=== PATIENT | male | born 1950 | race African-American/Black ===

== ENCOUNTER 2016-11-12 20:25 | Observation (INO) | payer OTHER, MEDICARE ==
[2016-11-12 21:08] LABS: Hematocrit 36.4 % (42.0-52.0); Hemoglobin 12.8 gm/dL (13.5-18.0); Mean Cell Volume 82.4 fl (78-100); Mean Corpuscular Hgb Conc 35.2 g/dl (32-36); Mean Platelet Volume 9.8 fl (6.0-9.5); Neutrophil # 5.4 K/mm3 (1.3-6.0); Neutrophil % 91.6 % (42-75.0); Platelet Count 146 K/mm3 (150-450); Red Blood Count 4.42 M/mm3 (4.7-6.0); Red Cell Distribution Width 12.7 % (11.5-14.0); White Blood Count 5.9 K/mm3 (4.0-10.5)
--- NOTE | 2016-11-12 21:23 | ERNOTE ---
Medical Problem HPI - Narrative Date of Service: 11/12/16 - General Chief Complaint: General Assessment Time Seen by Provider: 11/12/16 21:11 Source: patient, family Exam Limitations: no limitations - Immun/Allergies/Home Medications Immunizations: IMMUNIZATION HX Immunizations Up to Date Yes History of Influenza Vaccine Yes Hx Pneumococcal Vaccination Yes Allergies/Adverse Reactions: Allergies No Known Allergies Allergy (Verified 11/12/16 20:34) Home Medications: HOME MEDICATIONS Diltiazem HCl [Cardizem Cd] 1 tab PO DAILY 04/18/14 [Last Taken 01/19/15 07:00] Dorzolamide HCl/Timolol Maleat [Cosopt Eye Drops] 1 drop OP BID 04/18/14 [Last Taken 01/19/15 21:00] Enalapril Maleate [Vasotec] 20 mg PO BID 04/18/14 [Last Taken 01/19/15 18:00] Ferrous Sulfate 324 mg PO TID 04/18/14 [Last Taken 01/19/15 18:00] Finasteride [Proscar] 5 mg PO DAILY 04/18/14 [Last Taken 01/19/15 07:00] Flunisolide 25 ml NS BID 04/18/14 [Last Taken 01/19/15 21:00] Omeprazole [Prilosec] 20 mg PO DAILY 04/18/14 [Last Taken 01/19/15 07:00] Sildenafil Citrate [Viagra] 100 mg PO DAILY PRN 04/18/14 [Last Taken Unknown] Terazosin HCl 10 mg PO HS 04/18/14 [Last Taken 01/19/15 21:00] amLODIPine BESYLATE [Norvasc] 10 mg PO DAILY 04/18/14 [Last Taken 01/19/15 07:00 ] Ascorbic Acid [Vitamin C] 1 tab PO DAILY 01/20/15 [Last Taken 01/19/15 07:00] Aspirin [Aspirin Enteric Coated] 81 mg PO DAILY 01/20/15 [Last Taken 01/19/15 07 :00] Multivitamin with Minerals [One Daily 50 Plus] 1 each PO DAILY 01/20/15 [Last Taken 01/19/15 07:00] Calder-3 Fatty Acids [Calder-3] 1,000 mg PO DAILY 01/20/15 [Last Taken 01/19/15 07 :00] Vitamin E 400 unit PO DAILY 01/20/15 [Last Taken 01/19/15] prednisoLONE ACETATE [Pred Forte 1%] 1 drop OP QID 01/20/15 [Last Taken 21:00] Acetaminophen [Tylenol] 650 mg PO QID PRN #0 tablet 01/23/15 [Last Taken Unknown ] Benzonatate [Tessalon] 200 mg PO Q6H capsule 01/23/15 [Last Taken Unknown] Bisacodyl [Dulcolax] 10 mg PO BID tablet. 01/23/15 [Last Taken Unknown] Cefepime HCl [Maxipime] 1 gm IV Q12H vial 01/23/15 [Last Taken Unknown] Clobetasol Propionate [Temovate 0.05% Ointment] 1 appl TP BID tube 01/23/15 [ Last Taken Unknown] Dextrose 5 % in Water [Dextrose 5%/Water] 100 ml IV Q12H bag 01/23/15 [Last Taken Unknown] Enoxaparin Sodium [Lovenox] 40 mg SC Q24H disp.syrin 01/23/15 [Last Taken Unknown] Insulin Aspart [Novolog] 10 units SC ACINS vial 01/23/15 [Last Taken Unknown] Insulin Glargine,Hum.rec.anlog [Lantus] 40 units SC HS vial 01/23/15 [Last Taken Unknown] Magnesium Hydroxide [Milk Of Magnesia] 45 ml PO BID udc 01/23/15 [Last Taken Unknown] Normal Saline [Sodium Chloride 0.9%] 1,000 ml IV .Q8H PRN #0 bag 01/23/15 [Last Taken Unknown] Sennosides/Docusate Sodium [Senokot-S] 2 tab PO BID tablet 01/23/15 [Last Taken Unknown] Spironolactone [Aldactone] 50 mg PO DAILY tablet 01/23/15 [Last Taken Unknown] Tetracaine/Benzocaine/Butamben [Cetacaine] 1 spray TP PRN PRN #0 btl 01/23/15 [ Last Taken Unknown] metFORMIN HCL [Glucophage] 1,000 mg PO BIDWM tablet 01/23/15 [Last Taken Unknown] - History of Present History Narrative: Pt. comes in with c/o malaise, fatigue and chills that started 2 hours ago. Pt. denies any recent illness, SOB, CP, NVD, abd pain, dysuria, fevers, weakness , or other symptoms. Pt. denies any alleviating factors, aggravating factors, or prehospital treatment. Review of Systems - Review of Systems Constitutional: Present: no symptoms reported. Absent: recent illness, fever, chills, weakness, fatigue, malaise EYE: Present: no symptoms reported ENT: Present: no symptoms reported Respiratory: Present: no symptoms reported. Absent: shortness of breath, cough , wheezing Cardiology: Present: no symptoms reported. Absent: chest pain, palpitations, edema Gastrointestinal/Abdominal: Present: no symptoms reported. Absent: nausea, vomiting, diarrhea, abdominal pain Genitourinary: Present: no symptoms reported. Absent: pain, decreased urinary output Musculoskeletal: Present: no symptoms reported. Absent: back pain, joint pain Skin: Present: no symptoms reported. Absent: rash, change in hair/nails Neurological: Present: no symptoms reported. Absent: headache, dizziness/light- headedness, numbness All Other Systems: All systems neg except as marked - Patient's Past Medical History Patient History - Medical: Cataracts, Diabetes Type 2, Diabetes Type 2 Insulin Dependent, UTI'S Patient History - Cardiac/Respiratory: No pertinent hx, Hypertension, Hyperlipidemia Patient History - Cancer: No Hx of Cancer Patient History - Surgical Procedures: Cataracts Patient History - Other: None - Family History Mother Family History - Medical: , Diabetes Type 2 Insulin Dependent Family History - Cardiac/Respiratory: CVA/Stroke Father Family History - Medical: , Diabetes Type 2 Insulin Dependent - Social History Living Situations: home Psych History: Psychiatric Hx Smoking Status: Never smoker Patient requests Smoking Cessation Consult: No Initiate information on Smoking Cessation: No Alcohol Use: none Drug Use: none - Immunizations Immunizations Up to Date: Yes Hx Pneumococcal Vaccination: Yes History of Influenza Vaccine: Yes Physical Exam - Physical Exam General Appearance: Present: wd/wn, alert, no apparent distress Eye Exam: Normal inspection: bilateral, PERRL: bilateral, EOMI: bilateral Ears, Nose, Throat: Present: normal ENT inspection, normal pharynx Neck: Present: normal inspection, nontender. Absent: lymphadenopathy (R), lymphadenopathy (L) Respiratory: Present: no respiratory distress, normal breath sounds, no accessory muscle use, chest nontender, lungs clear Cardiovascular/Chest: Present: regular rate, rhythm, no murmur, normal peripheral pulses Gastrointestinal/Abdominal: Present: normal bowel sounds, nontender, nondistended, soft, no organomegaly Back Exam: Present: normal inspection, normal range of motion, no CVA tenderness , no vertebral tenderness Extremity Exam: Present: normal inspection, non-tender, normal range of motion, no edema Neurological Exam: Present: alert, oriented, normal mood/affect, no motor/ sensory deficits Skin Exam: Present: normal color, warm/dry. Absent: pallor, skin rash ED Progress - Date and Time Seen: Date and Time: 11/12/16 22:48 Discussed with Debbi and she accepts pt. for observation. - Results and Orders Patient's Lab Results:: I have reviewed the patient's lab results. - Vital Signs Patient's Vital Signs:: I have reviewed the patient's vital signs. Vital Signs: Vital Signs 11/12/16 20:30 Temperature 38.5 C H Pulse Rate 133 H Respiratory 20 Rate Blood Pressure 125/85 O2 Sat by Pulse 93 Oximetry - EKG EKG: other - Sinus tach with left atrial enlargement - X-Ray X-Ray #1 X-Ray: chest Interpretation: Reviewed by me X-ray Comments: peribronchial thickening - Progress/Reassessment Chief Complaint: General Assessment Departure - Departure Clinical Impression: Acute worsening of stage 3 chronic kidney disease Sepsis Qualifiers: Sepsis type: sepsis due to unspecified organism Qualified Code(s): A41.9 - Sepsis, unspecified organism UTI (urinary tract infection) Qualifiers: Urinary tract infection type: site unspecified Hematuria presence: with hematuria Qualified Code(s): N39.0 - Urinary tract infection, site not specified ; R31.9 - Hematuria, unspecified Disposition: [facility] Condition: Serious
--- OUTSIDE RECORDS SUMMARY | 2016-11-12 21:29 | XMS REPORT | Continuity of Care Document ---
:1950 Author Organization [facility] ([facility]) Address [address] [place] [address] Phone [phone] Care Team Providers Name Role Phone Reid [facility] Primary Care Provider [phone] Source Comments This disclosure is being made pursuant to the Care Everywhere program, applicable federal and state laws, and may not contain all informaitonavailable regarding this patient.[facility] ([facility]) Active Allergies and Adverse Reactions No Known Allergies Current Medications Prescription Sig. Disp. Refills Start Date End Date Status aspirin 81 mg EC tablet Take 81 mg by mouth Active daily chorionic gonadotropin, Inject 6 Units Active human 10,000 unit intramuscularly once injection insulin glargine Inject 40 Units Active (LanTUS) 100 unit/mL subcutaneously at injection vial bedtime hydrochlorothiazide PO Active tobramycin-dexamethasone Instructions 3.5 g 0 12/11/2014 Active (Tobradex) 0.3-0.1 % provided on post-op ophthalmic ointment patient instruction sheet brimonidine 0.2 % Instill 1 Drop onto 5 mL 11 12/12/2014 Active ophthalmic solution the right eye 2 times daily dorzolamide-timolol Instill 1 Drop onto 10 mL 11 12/12/2014 Active 2-0.5 % ophthalmic the right eye 2 solution times daily latanoprost 0.005 % Instill 1 Drop onto 2.5 mL 11 12/12/2014 Active ophthalmic solution the right eye every evening prednisoLONE acetate 1 % Instill 1 Drop onto 10 mL 4 12/12/2014 Active ophthalmic suspension the left eye every 2 hours while awake trimethoprim-sulfamethox Take 2 Tabs by mouth Active azole 160-800 mg per 2 times daily tablet Active Problems Problem Noted Date Pseudophakia, left eye 12/13/2014 Primary open angle glaucoma of both eyes, severe stage 11/22/2014 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, without macular edema, associated with type 2 diabetes mellitus Congenital sutural cataract 11/22/2014 Social History Tobacco Use Types Packs/Day Years Used Date Never Smoker Smokeless Tobacco: Never Used Last Filed Vital Signs Vital Sign Reading Time Taken Blood Pressure 144/80 12/12/2014 10:45 AM CDT Pulse 71 12/12/2014 7:26 AM CDT Temperature 36.6 C (97.9 F) 12/12/2014 10:17 AM CDT Respiratory Rate 16 12/12/2014 10:45 AM CDT Height 1.753 m (5' 9") 11/22/2014 12:54 PM CDT Weight 92.2 kg (203 lb 4.2 oz) 12/12/2014 7:26 AM CDT Body Mass Index 30 12/12/2014 7:26 AM CDT Oxygen Saturation 97% 12/12/2014 10:45 AM CDT Plan of Care Health Maintenance Due Date Last Done Comments HCV Screening 1950 Hepatitis B Vaccine (1 of 3 - Primary Series) 1950 Tdap Vaccine 09/20/1959 DIABETIC: Cholesterol 1966 Diabetic: Hdl 1966 DIABETIC: Hemoglobin A1C 1966 Diabetic: Ldl 1966 DIABETIC: Microalbumin 1966 DIABETIC: Triglycerides 1966 Td Vaccine 1966 Colonoscopy 1998 Prostate Cancer Screening 1998 Zoster Vaccine 2008 Pneumococcal Vaccine (1 of 2 - PCV13) 2013 DIABETIC: Foot Exam 11/22/2014 DIABETIC: Retinal Eye Exam 11/22/2014 Influenza Vaccine: Seasonal (#1) 02/03/2016 Results from Last 3 Months Not on file
[2016-11-12 21:39] LABS: ALT 17 U/L (19-67); AST 12 U/L (0-48); Albumin * 3.7 gm/dl (3.4-5.0); Alkaline Phosphatase * 40 U/L (50-170); Anion Gap 17.3 mmol/L (6.8-13.8); BUN/Creatinine Ratio 15.8 (9.0-21.6); Bilirubin, Total 0.7 mg/dL (0.0-1.1); Blood Urea Nitrogen 29 mg/dL (6-23); Ca. Corrected For Albumin 8.8 mg/dL (8.4-10.2); Calcium * 8.9 mg/dL (7.9-10.9); Carbon Dioxide 25.4 mmol/L (24-32.6); Chloride 104 mmol/L (97-106); Glucose * 226 mg/dL (70-110); Potassium 3.7 mmol/L (3.4-4.6); Sodium 143 mmol/L (132-142); Total Protein 6.4 gm/dL (6.2-8.2); Troponin I 0.024 ng/ml (0.00-0.10)
[2016-11-12] MEDS ORDERED: NORMAL SALINE 1,000 ML IV ONE (21:42)
[2016-11-12] MEDS ORDERED: ALBUTEROL SULFATE 2.5 MG/3 ML VIAL.NEB IH ONE (21:48)
[2016-11-12] MEDS ORDERED: ACETAMINOPHEN 500 MG TABLET PO ONE (21:50)
[2016-11-12] MEDS ORDERED: ALBUTEROL SULFATE 2.5 MG/0.5 ML VIAL.NEB IH ONE (22:02)
[2016-11-12 22:23] LABS: Urine Bilirubin Negative (NEGATIVE); Urine Blood 250 /ul (NEGATIVE); Urine Ketone Negative (NEGATIVE); Urine Protein 100 mg/dL (NEGATIVE); Urine Specific Gravity 1.025 SP.GR. (1.005-1.030); Urine Urobilinogen Normal (NORMAL)
[2016-11-12 22:36] LABS: Urine Appearance Clear; Urine Color Yellow; Urine Nitrite Positive (NEGATIVE); Urine WBC >50 /hpf (0-5)
[2016-11-12 22:37] LABS: Urine Bacteria 4+; Urine Yeast Few - 1+
--- OUTSIDE RECORDS SUMMARY | 2016-11-12 22:44 | XMS REPORT | Continuity of Care Document ---
:1950 Author Organization [facility] ([facility]) Address [address] [address] Phone [phone] Care Team Providers Name Role Phone Reid [facility] Primary Care Provider [phone] Source Comments This disclosure is being made pursuant to the Care Everywhere program, applicable federal and state laws, and may not contain all informaitonavailable regarding this patient.[facility] ([facility]) Active Allergies and Adverse Reactions No Known [...]
[2016-11-12] MEDS: PIPERACILLIN SODIUM/TAZOBACTAM 3.375 GM in DEXTROSE 5 % IN WATER 100 ML IV SCH ×2 (23:22)
[2016-11-13] MEDS ORDERED: ACETAMINOPHEN 325 MG TABLET PO PRN (01:26)
--- NOTE | 2016-11-13 01:33 | HP ---
Chief Complaint - Chief Complaint Date of Service: 11/13/16 Time of Service: 01:00 Chief Complaint: Chills and fever History of Present Illness: 66 years old male adm to the hospital with reports of chills, fever and malaise. pt stated he was seen at the [facility] in [place] and had cystoscopy done. Later on in the day he began having chills, malaise and fever when he was seen in the ER. He had one episode of emesis accompanied with nausea. He denies dysuria, abdominal discomfort, fatigue and diaphoresis. PMH significant for urosepsis, CKD, UTI, diabetes, hypertension and hyperlipidemia. In ER urinalysis (+) lactic acid 2.1--->1.1 Temp 39.6 He was given Tylenol and s /s improved , HR 117. Bun/Cre 29/1.84 GFR 47. CXR: Lower lungs peribronchial thickening, no consolidation to suggest pneumonia. Zosyn was initiated in ER and will continue with IVF hydration. Plan of care discussed with pt, he verbalized understanding and agrees. - Patient's Past Medical History Patient History - Medical: Cataracts, Diabetes Type 2, Diabetes Type 2 Insulin Dependent, Renal Disease - CKD, UTI'S - urosepsis Patient History - Cardiac/Respiratory: No pertinent hx, Hypertension, Hyperlipidemia, CPAP/BiPAP Home Use, Sleep Apnea Patient History - Cancer: No Hx of Cancer Patient History - Surgical Procedures: Cataracts, Hernia Repair - BL inguinal hernia Patient History - Other: None - Family History Mother Family History - Medical: , Diabetes Type 2 Insulin Dependent Family History - Cardiac/Respiratory: CVA/Stroke Father Family History - Medical: , Diabetes Type 2 Insulin Dependent - Social History Living Situations: home Psych History: No pertinent hx Smoking Status: Never smoker Have you smoked in the past 12 months: No Patient requests Smoking Cessation Consult: No Initiate information on Smoking Cessation: No Alcohol Use: none Drug Use: none - Immunizations Immunizations Up to Date: Yes Hx Pneumococcal Vaccination: Yes History of Influenza Vaccine: Yes Review Of Systems (GEN) - Review of Systems Generalized/Overall Review: Present: Chills, Fever, Malaise EENTM: Present: No Symptoms Reported Respiratory: Present: No Symptoms Reported Cardiac: Present: No Symptoms Reported Abdominal: Present: Nausea, Vomiting Genitourinary: Present: No Symptoms Reported, Frequency Musculoskeletal: Present: No Symptoms Reported Neurological: Present: No Symptoms Reported Skin: Present: No Symptoms Reported Endocrine: Present: No Symptoms Reported Immunizations: IMMUNIZATION HX Immunizations Up to Date Yes History of Influenza Vaccine Yes Hx Pneumococcal Vaccination Yes Allergies/Adverse Reactions: Allergies Allergy/AdvReac Type Severity Reaction Status Date / Time No Known Allergies Allergy Verified 11/12/16 20:34 Home Medications: HOME MEDICATIONS Diltiazem HCl [Cardizem Cd] 1 tab PO DAILY 04/18/14 [Last Taken 01/19/15 07:00] Dorzolamide HCl/Timolol Maleat [Cosopt Eye Drops] 1 drop OP BID 04/18/14 [Last Taken 01/19/15 21:00] Enalapril Maleate [Vasotec] 20 mg PO BID 04/18/14 [Last Taken 01/19/15 18:00] Ferrous Sulfate 324 mg PO DAILY 04/18/14 [Last Taken 01/19/15 18:00] Finasteride [Proscar] 5 mg PO DAILY 04/18/14 [Last Taken 01/19/15 07:00] Omeprazole [Prilosec] 20 mg PO DAILY 04/18/14 [Last Taken 01/19/15 07:00] Sildenafil Citrate [Viagra] 100 mg PO DAILY PRN 04/18/14 [Last Taken Unknown] Terazosin HCl 10 mg PO HS 04/18/14 [Last Taken 01/19/15 21:00] amLODIPine BESYLATE [Norvasc] 10 mg PO DAILY 04/18/14 [Last Taken 01/19/15 07:00 ] Aspirin [Aspirin Enteric Coated] 81 mg PO DAILY 01/20/15 [Last Taken 01/19/15 07 :00] Multivitamin with Minerals [One Daily 50 Plus] 1 each PO DAILY 01/20/15 [Last Taken 01/19/15 07:00] Tell-3 Fatty Acids [Tell-3] 1,000 mg PO DAILY 01/20/15 [Last Taken 01/19/15 07 :00] Vitamin E 400 unit PO DAILY 01/20/15 [Last Taken 01/19/15] Acetaminophen [Tylenol] 650 mg PO QID PRN #0 tablet 01/23/15 [Last Taken Unknown ] Bisacodyl [Dulcolax] 10 mg PO BID tablet. 01/23/15 [Last Taken Unknown] Insulin Aspart [Novolog] 10 units SC ACINS vial 01/23/15 [Last Taken Unknown] Insulin Glargine,Hum.rec.anlog [Lantus] 40 units SC HS vial 01/23/15 [Last Taken Unknown] Sennosides/Docusate Sodium [Senokot-S] 2 tab PO BID tablet 01/23/15 [Last Taken Unknown] metFORMIN HCL [Glucophage] 1,000 mg PO BIDWM tablet 01/23/15 [Last Taken Unknown] Exam - Exam Vital Signs: Vital Signs - Last Taken Temp 37.4 C 11/12/16 23:47 Pulse 121 H 11/12/16 23:47 Resp 16 11/12/16 23:47 BP 141/77 11/12/16 23:47 Pulse Ox 94 11/12/16 23:47 Constitutional: Present: Alert, Oriented x3, Cooperative, No distress, Middle aged ENT Exam: Present: moist mucous membranes Eye Exam: bilateral eye: PERRL Neck: Present: full range of motion Respiratory: Present: chest non-tender, lungs clear, normal breath sounds, no respiratory distress Cardiovascular/Chest: Present: normal peripheral pulses, regular rate, rhythm, no chest tenderness, no edema Peripheral Pulses: dorsalis-pedis (R): 2+, dorsalis-pedis (L): 2+ Abdomen: Present: Normal bowel sounds, soft, nontender, nondistended /Rectal: Present: Exam deferred Extremity: Present: normal range of motion, non-tender, normal inspection, no pedal edema Skin Exam: Present: normal color, warm/dry Lymphatic: Present: no adenopathy Neurologic: Present: oriented x 3 Appearance: Present: appropriate appearance Thoughts: Present: normal thought pattern Diagnostic Studies: Laboratory Results WBC 5.9 K/mm3 (4.0-10.5) 11/12/16 21:06 RBC 4.42 M/mm3 (4.7-6.0) L 11/12/16 21:06 Hgb 12.8 gm/dL (13.5-18.0) L 11/12/16 21:06 Hct 36.4 % (42.0-52.0) L 11/12/16 21:06 MCV 82.4 fl (78-100) 11/12/16 21:06 MCH 29.0 pg (27-31) 11/12/16 21:06 MCHC 35.2 g/dl (32-36) 11/12/16 21:06 RDW 12.7 % (11.5-14.0) 11/12/16 21:06 Plt Count 146 K/mm3 (150-450) L 11/12/16 21:06 MPV 9.8 fl (6.0-9.5) H 11/12/16 21:06 Immature Gran % (Auto) 0.30 % (0.001-0.429) 11/12/16 21:06 Immature Gran # (Auto) 0.02 K/mm3 (0.000-0.0310) 11/12/16 21:06 Neutrophils % 91.6 % (42-75.0) H 11/12/16 21:06 Lymphocytes % 4.4 % (20-51) L 11/12/16 21:06 Monocytes % 2.9 % (0.0-9) 11/12/16 21:06 Eosinophils % 0.5 % (0.0-3.0) 11/12/16 21:06 Basophils % 0.3 % (0.0-1.0) 11/12/16 21:06 Nucleated RBC % 0.0 k/mm3 (0-1) 11/12/16 21:06 Neutrophils # 5.4 K/mm3 (1.3-6.0) 11/12/16 21:06 Lymphocytes # 0.3 k/mm3 (1.5-3.5) L 11/12/16 21:06 Monocytes # 0.2 k/mm3 (0.0-1.0) 11/12/16 21:06 Eosinophils # 0.0 k/mm3 (0.0-0.7) 11/12/16 21:06 Absolute Basophils 0.0 k/mm3 (0.0-0.1) 11/12/16 21:06 Sodium 143 mmol/L (132-142) H 11/12/16 21:06 Plasma Sodium 145 mmol/L (130-142) H 11/12/16 21:06 Potassium 3.7 mmol/L (3.4-4.6) 11/12/16 21:06 Chloride 104 mmol/L (97-106) 11/12/16 21:06 Carbon Dioxide 25.4 mmol/L (24-32.6) 11/12/16 21:06 Anion Gap 17.3 mmol/L (6.8-13.8) H 11/12/16 21:06 BUN 29 mg/dL (6-23) H 11/12/16 21:06 Creatinine 1.84 mg/dL (0.4-1.4) H 11/12/16 21:06 Est GFR (Non-Af Amer) 47 mL/min (60-130) L D 11/12/16 21:06 BUN/Creatinine Ratio 15.8 (9.0-21.6) 11/12/16 21:06 Random Glucose 226 mg/dL (70-110) H 11/12/16 21:06 Lactic Acid, Venous 1.1 mmol/L (0.4-1.9) 11/13/16 00:23 Calcium 8.9 mg/dL (7.9-10.9) 11/12/16 21:06 Calcium Adj for Albumin 8.8 mg/dL (8.4-10.2) 11/12/16 21:06 Total Bilirubin 0.7 mg/dL (0.0-1.1) 11/12/16 21:06 AST 12 U/L (0-48) 11/12/16 21:06 ALT 17 U/L (19-67) L 11/12/16 21:06 Alkaline Phosphatase 40 U/L (50-170) L 11/12/16 21:06 Troponin I 0.024 ng/ml (0.00-0.10) 11/12/16 21:06 Total Protein 6.4 gm/dL (6.2-8.2) 11/12/16 21:06 Albumin 3.7 gm/dl (3.4-5.0) 11/12/16 21:06 Urine Color Yellow 11/12/16 22:13 Urine Appearance Clear 11/12/16 22:13 Urine pH 6.0 pH (5.0-7.0) 11/12/16 22:13 Ur Specific [place] 1.025 SP.GR. (1.005-1.030) 11/12/16 22:13 Urine Protein 100 mg/dL (NEGATIVE) H 11/12/16 22:13 Urine Glucose (UA) 100 mg/dL (NEGATIVE) H 11/12/16 22:13 Urine Ketones Negative mg/dL (NEGATIVE) 11/12/16 22:13 Urine Blood 250 /ul (NEGATIVE) H 11/12/16 22:13 Urine Nitrate Positive (NEGATIVE) H 11/12/16 22:13 Urine Bilirubin Negative mg/dl (NEGATIVE) 11/12/16 22:13 Prot Sulfosalicylic Acd 1+ mg/dL (0) 11/12/16 22:13 Urine Urobilinogen Normal EU/dl (NORMAL) 11/12/16 22:13 Ur Leukocyte Esterase 500 /ul (NEGATIVE) H 11/12/16 22:13 Urine RBC 5-10 /hpf (0-5) H 11/12/16 22:13 Urine WBC >50 /hpf (0-5) H 11/12/16 22:13 Ur Epithelial Cells 10-25 /hpf (0-5) H 11/12/16 22:13 Urine Bacteria 4+ (NONE) H 11/12/16 22:13 Urine Yeast Few - 1+ (NONE) H 11/12/16 22:13 Urine Culture Comments Culture to follow 11/12/16 22:13 Serum Ketones Negative (NEGATIVE) 11/12/16 21:06 Influenza Type A Ag Negative (NEGATIVE) 11/12/16 21:31 Influenza Type B Ag Negative (NEGATIVE) 11/12/16 21:31 CXR: Lower lung salomón-bronchial thickening, no consolidation to suggest pneumonia. Assessment/Plan - Narrative Narrative: UTI in presence of septicemia vs SIRs- noted on urinalysis On adm temp 39.6, HR 117, BP 136/79 Urine culture and blood cultures pending Continue with zosyn and IVF hydration Dehydration On adm BUN/ cre---> 29/1.84 Monitor BMP in the morning CKD- stable at his baseline Monitor bmp in the morning and continue with IVF Diabetes On adm BG 226 Acc-check AC+HS and sliding scale insulin Hypertension On adm BP 141/77 Monitor vital signs and Code status: Full VTE ppx: Ambulate and SCD Anticipate discharge home vs [facility] hospital 0-1 day and follow up with PCP Time 40 minutes and previous records reviewed. - Assessment/Plan (1) UTI (urinary tract infection) Problem: Acute Qualifiers: Urinary tract infection type: site unspecified Hematuria presence: with hematuria Qualified Code(s): N39.0 - Urinary tract infection, site not specified; R31.9 - Hematuria, unspecified (2) Diabetes Problem: Chronic (3) HTN (hypertension) Problem: Chronic
[2016-11-13] MEDS: NORMAL SALINE 1,000 ML IV PRN ×2 (02:35→08:58)
[2016-11-13 05:37] LABS: Hematocrit 34.1 % (42.0-52.0); Hemoglobin 11.8 gm/dL (13.5-18.0); Mean Cell Volume 83.4 fl (78-100); Mean Corpuscular Hemoglobin 28.9 pg (27-31); Mean Corpuscular Hgb Conc 34.6 g/dl (32-36); Mean Platelet Volume 10.2 fl (6.0-9.5); Neutrophil # 7.3 K/mm3 (1.3-6.0); Neutrophil % 88.6 % (42-75.0); Platelet Count 149 K/mm3 (150-450); Red Blood Count 4.09 M/mm3 (4.7-6.0); Red Cell Distribution Width 12.9 % (11.5-14.0); White Blood Count 8.2 K/mm3 (4.0-10.5)
[2016-11-13 05:56] LABS: Anion Gap 12.4 mmol/L (6.8-13.8); BUN/Creatinine Ratio 14.4 (9.0-21.6); Calcium * 8.6 mg/dL (7.9-10.9); Carbon Dioxide 28.3 mmol/L (24-32.6); Estimated Creat Clear 44.2; Potassium 3.7 mmol/L (3.4-4.6)
[2016-11-13] MEDS: INSULIN ASPART 100 UNITS/ML VIAL SC SCH ×2 (07:00→11:58)
[2016-11-13] MEDS: PIPERACILLIN SODIUM/TAZOBACTAM 3.375 GM in DEXTROSE 5 % IN WATER 100 ML IV SCH ×2 (07:00)
[2016-11-13] MEDS ORDERED: PANTOPRAZOLE SODIUM 20 MG TABLET.DR PO SCH (07:00)
[2016-11-13] MEDS ORDERED: TIMOLOL MALEATE/DORZOLAM HCL 100 DROP BTL OP SCH (09:00)
[2016-11-13] MEDS ORDERED: BISACODYL 5 MG TABLET.DR PO SCH (09:00)
[2016-11-13] MEDS ORDERED: OMEGA-3 FATTY ACIDS 1 CAP CAPSULE PO SCH (09:00)
[2016-11-13] MEDS ORDERED: ENALAPRIL MALEATE 20 MG TABLET PO SCH (09:00)
[2016-11-13] MEDS ORDERED: FERROUS SULFATE 325 MG TABLET PO SCH (09:00)
[2016-11-13] MEDS ORDERED: VITAMIN E (DL,TOCOPHERYL ACET) 400 UNITS CAPSULE PO SCH (09:00)
[2016-11-13] MEDS ORDERED: SENNOSIDES/DOCUSATE SODIUM 1 TAB TABLET PO SCH (09:00)
[2016-11-13] MEDS ORDERED: MULTIVITAMINS 1 TAB TAB.CHEW PO SCH (09:00)
[2016-11-13] MEDS ORDERED: amLODIPine BESYLATE 10 MG TABLET PO SCH (09:00)
[2016-11-13] MEDS ORDERED: FINASTERIDE 5 MG TABLET PO SCH (09:00)
[2016-11-13] MEDS ORDERED: DILTIAZEM HCL 120 MG CAP.SR.24H PO SCH (09:00)
[2016-11-13] MEDS ORDERED: ASPIRIN 81 MG TABLET.DR PO SCH (09:00)
[2016-11-13 11:36] VITALS: BP 140/84
[2016-11-13] MEDS ORDERED: DEXTROSE 5 % IN WATER 1,000 ML IV PRN (12:05)
--- NOTE | 2016-11-13 13:39 | DS ---
(1) UTI (urinary tract infection) Diagnosis(s): Growing Escherichia coli resistant to Augmentin. Ceftin 500 mg PO BID x7 days called [11/15/16]. Problem: Acute Qualifiers: Urinary tract infection type: site unspecified Hematuria presence: with hematuria Qualified Code(s): N39.0 - Urinary tract infection, site not specified; R31.9 - Hematuria, unspecified (2) Diabetes Problem: Chronic Qualifiers: Diabetes mellitus type: type 2 Chronic kidney disease stage: stage 3 ( moderate) (3) HTN (hypertension) Problem: Chronic Qualifiers: Hypertension type: essential hypertension Qualified Code(s): I10 - Essential (primary) hypertension (4) Hyperlipidemia Problem: Chronic Qualifiers: Hyperlipidemia type: unspecified Qualified Code(s): E78.5 - Hyperlipidemia , unspecified (5) BPH (benign prostatic hyperplasia) Problem: Chronic Qualifiers: Lower urinary tract symptom presence: presence of symptoms unspecified Description of Stay: DATE OF ADMISSION: 11/13/2016. DATE OF DISCHARGE: 11/13/2016. DISCHARGE SUMMARY: Naveen Bernardo is a 66-year-old AA male with a history of HTN, HLD, T2DM, BPH, GERD, CKD stage III who underwent a cystoscopy at the [facility] on 11/12/2016. He started having fever and chills later in the evening. Presented to the ER with a temp of 38.5, HR 117/m, BUN/CR 29/1.84 [11/12/2016] which decreased to 23/1.60[11/13/2016] with IV fluids. After blood and urine cultures were done, patient was treated with Zosyn. He was discharged on the same day on Augmentin 500 mg twice a day. Urine cultures grew Escherichia coli resistant to most antibiotics. He was given a prescription for Ceftin 500 twice a day 7 days. Total of 40 minutes was spent in examining the patient, discussing test results , prognosis, reconciliation of meds and dictating discharge summary. Procedures Performed: none Results and Findings: Laboratory Tests 11/12/16 11/13/16 21:06 05:33 WBC 5.9 8.2 D Hgb 12.8 L 11.8 L Hct 36.4 L 34.1 L Plt Count 146 L 149 L 11/12/16 11/13/16 21:06 05:33 Sodium 145 H Plasma Sodium 145 H 146 H Potassium 3.7 3.7 Chloride 104 108 H Carbon Dioxide 25.4 28.3 BUN 29 H 23 Creatinine 1.84 H 1.60 H Est GFR (Non-Af Amer) 47 L D 56 L Random Glucose 226 H 191 H Calcium Adj for Albumin 8.8 Total Bilirubin 0.7 AST 12 ALT 17 L Alkaline Phosphatase 40 L Total Protein 6.4 Albumin 3.7 11/12/16 11/12/16 11/13/16 21:06 21:23 00:23 Lactic Acid, Venous 2.1 H* 1.1 Troponin I 0.024 CXR PA lateral: 11/12/2016: 21:12 hours. Impression: Lower lung peribronchial thickening; correlate for airway disease. No focal consolidation to suggest a bacterial pneumonia. Lungs are symmetrically inflated. No pneumothorax/pleural effusion. Pulmonary vasculature is unremarkable. DJD present. No acute osseous findings. Microbiology 11/12/16 22:15 Urine,Clean Catch Urine Culture - Final Escherichia Coli Discharge Disposition: Home self care Disposition: Home self-care Condition: Undetermined Discharge Activity: Activity as tolerated Discharge Diet: Consistent carbs, Low salt, Low fat/chol, High Fiber Problem Oriented Discharge Instructions to Patient/Family: Urinary Tract Infection, Adult, [id number] Additional Patient Instructions (free text): Increase water intake. Vitamin D3 2000 units daily. Plain yogurt 6 ounces twice a day. Keep scheduled appointments with PCP and [facility] Prescriptions (Any new or edited meds): Amox Tr/Potassium Clavulanate [Augmentin 500-125 Tablet] 500 mg PO Q12H #14 tab Complete Home Medications List: Complete Home Medication List: Diltiazem HCl [Cardizem Cd] 1 tab PO DAILY 04/18/14 Dorzolamide HCl/Timolol Maleat [Cosopt Eye Drops] 1 drop OP BID 04/18/14 Enalapril Maleate [Vasotec] 20 mg PO BID 04/18/14 Ferrous Sulfate 324 mg PO DAILY 04/18/14 Finasteride [Proscar] 5 mg PO DAILY 04/18/14 Omeprazole [Prilosec] 20 mg PO DAILY 04/18/14 Sildenafil Citrate [Viagra] 100 mg PO DAILY PRN 04/18/14 Terazosin HCl 10 mg PO HS 10/15/14 amLODIPine BESYLATE [Norvasc] 10 mg PO DAILY 04/18/14 Aspirin [Aspirin Enteric Coated] 81 mg PO DAILY 01/20/15 Multivitamin with Minerals [One Daily 50 Plus] 1 each PO DAILY 01/20/15 Adrian-3 Fatty Acids [Adrian-3] 1,000 mg PO DAILY 01/20/15 Acetaminophen [Tylenol] 650 mg PO QID PRN #0 tablet 01/23/15 Insulin Aspart [Novolog] 10 units SC ACINS vial 01/23/15 Insulin Glargine,Hum.rec.anlog [Lantus] 40 units SC HS vial 01/23/15 metFORMIN HCL [Glucophage] 1,000 mg PO BIDWM tablet 01/23/15 Amox Tr/Potassium Clavulanate [Augmentin 500-125 Tablet] 500 mg PO Q12H #14 tab 11/13/16 Atorvastatin Calcium 40 mg PO HS 11/13/16 Chlorthalidone [Hygroton] 25 mg PO DAILY 11/13/16
[2016-11-13] MEDS ORDERED: INSULIN GLARGINE,HUM.REC.ANLOG 100 UNITS/ML VIAL SC SCH (21:00)
[2016-11-13] MEDS ORDERED: TERAZOSIN HCL 5 MG CAPSULE PO SCH (21:00)
== END 2016-11-13 14:45 | disposition home or self-care (01) ==
LOC: ER 20:25 → MS 22:40
PROVIDERS: ADMIT Nurse Practitioner; ATTEND Internal Medicine
DX: N39.0 Urinary tract infection, site not specified (principal); B96.20 Unspecified Escherichia coli [E. coli] as the cause of diseases classified elsewhere; E86.0 Dehydration; R31.9 Hematuria, unspecified; Z16.11 Resistance to penicillins; I12.9 Hypertensive chronic kidney disease with stage 1 through stage 4 chronic kidney disease, or unspecified chronic kidney disease; E11.22 Type 2 diabetes mellitus with diabetic chronic kidney disease; N18.3 Chronic kidney disease, stage 3 (moderate); N40.0 Benign prostatic hyperplasia without lower urinary tract symptoms; Z79.4 Long term (current) use of insulin
CPT/HCPCS: 36415; 71020; 80048; 80053; 81001; 82009; 83605; 84484; 85025; 87040; 87077; 87086; 87186; 87400; 93005; 96361; 96365; 96366; 96372; 99283; G0378

== ENCOUNTER 2021-01-01 11:35 | Observation (INO) ==
[2021-01-01] MEDS ORDERED: NORMAL SALINE 1,000 ML IV ONE (12:02)
[2021-01-01] MEDS ORDERED: INSULIN REGULAR, HUMAN 100 UNITS/ML VIAL SC ONE (12:03)
--- NOTE | 2021-01-01 12:10 | ERNOTE ---
Medical Problem HPI - Narrative Date of Service: 01/01/21 - General Chief Complaint: Diabetes Related Problem Time Seen by Provider: 01/01/21 11:41 Source: patient, family Exam Limitations: no limitations - Immun/Allergies/Home Medications Immunizations: IMMUNIZATION HX Immunizations Up to Date Yes Immunizations Comment covid series completed History of Influenza Vaccine Yes Hx Pneumococcal Vaccination Yes Allergies/Adverse Reactions: Allergies No Known Allergies Allergy (Verified 11/12/16 20:34) Home Medications: HOME MEDICATIONS Finasteride [Proscar] 5 mg PO DAILY 04/18/14 [Last Taken 01/19/15 07:00] Atorvastatin Calcium 40 mg PO HS 11/13/16 [Last Taken Unknown] Brimonidine Tartrate [Brimonidine 0.2% Ophthalmic Solution] 1 drp RIGHTEYE BID 01/01/21 [Last Taken Unknown] Bupropion HCl [Bupropion Xl] 150 mg PO DAILY 01/01/21 [Last Taken Unknown] Carvedilol [Coreg] 25 mg PO BID 01/01/21 [Last Taken Unknown] FLUoxetine HCL [Prozac] 80 mg PO DAILY 01/01/21 [Last Taken Unknown] Gabapentin [Neurontin] 300 mg PO BID 01/01/21 [Last Taken Unknown] Insulin Aspart [Novolog] 14 units SC [facility] 01/01/21 [Last Taken Unknown] Insulin Glargine,Hum.rec.anlog [Lantus] 30 units SC HS 01/01/21 [Last Taken Unknown] Latanoprost/Pf [Latanoprost 0.005% Eye Drop] 1 drp OP HS 01/01/21 [Last Taken Unknown] Spironolactone [Aldactone] 25 mg PO DAILY 01/01/21 [Last Taken Unknown] Torsemide 10 mg PO DAILY 01/01/21 [Last Taken Unknown] traZODone HCL [Trazodone HCl] 200 mg PO HS 01/01/21 [Last Taken Unknown] - History of Present History Narrative: Patient is a 70-year-old male that presents to the emergency department with complaint of elevated blood sugar per home health. Patient states his mouth fee ls dry. Patient has noted a 50 pound weight loss since the of his in May 2020. Patient states he has had decreased appetite and granddaughter who resides with him states he eats very little. Patient currently is being treated for urinary tract infection. Patient otherwise offers no complaints and came in because of elevated blood sugar. Patient states he has not changed his medication or missed any dose of his medication. Date (Duration): 01/01/21 Timing: constant Severity: moderate Modifying Factors - (Improves): Present: medication Modifying Factors - (Worsens): Present: other - not eating properly Review of Systems - Review of Systems Constitutional: Present: weakness, malaise, weight loss EYE: Present: no symptoms reported ENT: Present: no symptoms reported Respiratory: Present: no symptoms reported Cardiology: Present: no symptoms reported Gastrointestinal/Abdominal: Present: eating less Genitourinary: Present: other - current UTI Musculoskeletal: Present: no symptoms reported Skin: Present: no symptoms reported Neurological: Present: no symptoms reported Endocrine: Present: unexplained weight gain Hematologic/Lymphatic: Present: no symptoms reported Psych: Present: no symptoms reported Medical History (Last Reviewed 01/01/21 @ 12:08 by Raquel Murray MD) Congestive heart failure Diabetes mellitus Pacemaker Surgical History: Surgical History (Last Reviewed 01/01/21 @ 12:08 by Raquel Murray MD) No pertinent past surgical history Family History: Family History (Last Reviewed 01/01/21 @ 12:08 by Raquel Murray MD) Other No pertinent family history Social History: (Last Reviewed 01/01/21 @ 12:08 by Raquel Murray MD) Social History: household members: family caregivers: other Service: Yes branch: [employer] status: retired Tobacco: Smoking Status: Never smoker Alcohol: alcohol intake: never Substance Use: substance use type: does not use Physical Exam - Physical Exam General Appearance: Present: wd/wn, alert, no apparent distress Head Exam: Present: normal inspection Eye Exam: Normal inspection: bilateral, PERRL: bilateral, EOMI: bilateral Ears, Nose, Throat: Present: dry mucous membranes Neck: Present: normal inspection, nontender Respiratory: Present: no respiratory distress, normal breath sounds, no accessory muscle use, chest nontender, lungs clear Cardiovascular/Chest: Present: regular rate, rhythm, no murmur, normal peripheral pulses Peripheral Pulses: N=norm/S=strong/W=weak/B=bound/A=absent: Radial (R): Normal, Radial (L): Normal, Dorsalis-pedis (R): Normal, Dorsalis-pedis (L): Normal Gastrointestinal/Abdominal: Present: normal bowel sounds, nontender, nondistended Back Exam: Present: normal inspection, normal range of motion Extremity Exam: Present: normal inspection Neurological Exam: Present: alert, oriented, normal mood/affect, no motor/sensory deficits Skin Exam: Present: normal color, warm/dry Lymphatic Exam: Present: no adenopathy Progress - Results and Orders Patient's Lab Results:: I have reviewed the patient's lab results. Results and Orders: Laboratory Tests 01/01/21 12:15 Sodium 130 L Plasma Sodium 140 Potassium 5.4 H D Chloride 93 L Carbon Dioxide 31.4 Anion Gap 11.0 BUN 55 H D Creatinine 1.65 H Est GFR (Non-Af Amer) 53 L BUN/Creatinine Ratio 33.3 H Random Glucose 716 H Calcium 8.8 Calcium Adj for Albumin 8.6 Magnesium 3.2 H Total Bilirubin 0.7 AST 27 ALT 52 Alkaline Phosphatase 83 B-Natriuretic Peptide 2492 H Total Protein 7.3 Albumin 3.8 - Vital Signs Patient's Vital Signs:: I have reviewed the patient's vital signs. Vital Signs: Vital Signs 01/01/21 11:35 01/01/21 11:47 Temperature 36.0 C Pulse Rate 80 84 Respiratory Rate 12 Blood Pressure 145/79 O2 Sat by Pulse Oximetry 96 - Progress/Reassessment Chief Complaint: Diabetes Related Problem Progress:: Unchanged - Repeat BS greater than 500 after 10 units reular insulin Plan - Plan Plan: Baseline lab is obtained. Urinalysis is repeated. Patient is hydrated with 1 L of normal saline. 10 units of regular insulin subcu was administered. Initial blood sugar is 716. Venous blood gases show pH within normal limits. Will repeat blood sugar after 10 units of regular insulin subcu. Repeat BS still greater than 500. Urine ketones 15. Anion gap WNL. Discussed with Dr. Morse after verifying with [facility] and patient will be admitted for observation for hyperglycemia. Covid screen obtained and patient has been vaccinated. Departure Clinical Impression: Hyperglycemia due to diabetes mellitus - Departure Disposition: Short Term Hospital Inpatient Condition: Good
[2021-01-01 12:24] LABS: Venous Blood Gas HCO3 28.9 mmol/L (22.0-29.0); Venous Blood Gas pH 7.39 (7.32-7.43)
[2021-01-01 12:29] LABS: Hematocrit 39.3 % (42.0-52.0); Hemoglobin 13.2 gm/dL (13.5-18.0); Mean Cell Volume 85.8 fl (78-100); Mean Corpuscular Hemoglobin 28.8 pg (27-31); Mean Corpuscular Hgb Conc 33.6 g/dl (32-36); Mean Platelet Volume 10.2 fl (8-11.3); Neutrophil # 2.2 K/mm3 (1.3-6.0); Neutrophil % 68.5 % (42-75.0); Platelet Count 176 K/mm3 (150-450); Red Blood Count 4.58 M/mm3 (4.7-6.0); Red Cell Distribution Width 11.9 % (11.5-14.0); White Blood Count 3.2 K/mm3 (4.0-10.5)
[2021-01-01 12:44] LABS: Albumin * 3.8 gm/dl (3.4-5.0); BUN/Creatinine Ratio 33.3 (9.0-21.6); Bilirubin, Total 0.7 mg/dL (0.0-1.1); Ca. Corrected For Albumin 8.6 mg/dL (8.4-10.2); Calcium * 8.8 mg/dL (7.9-10.9); Carbon Dioxide 31.4 mmol/L (24-32.6); Magnesium 3.2 mg/dL (1.2-2.8); Potassium 5.4 mmol/L (3.4-4.6); Total Protein 7.3 gm/dL (6.2-8.2)
[2021-01-01 13:18] LABS: Urine Bilirubin Negative (NEGATIVE); Urine Ketone 15 mg/dL (NEGATIVE); Urine Nitrite Negative (NEGATIVE); Urine Protein Negative (NEGATIVE); Urine Specific Gravity <=1.005 SP.GR. (1.005-1.030); Urine Urobilinogen Normal (NORMAL)
[2021-01-01 13:26] LABS: Urine Appearance Clear (CLEAR); Urine Bacteria None Seen; Urine Blood 5 /ul (NEGATIVE); Urine Color Yellow; Urine WBC None Seen /hpf (0-5)
--- NOTE | 2021-01-01 14:43 | HP ---
Chief Complaint - Chief Complaint Date of Service: 01/01/21 Time of Service: 14:07 Chief Complaint: Fatigue and not feeling well History of Present Illness: 68-year-old male with a past medical history of diabetes mellitus, congestive heart failure and pacemaker presents from home with complaints of elevated blood sugar. Home health. Patient states he has not been feeling well for the past 2 to 4 weeks and therefore has not been taking his medications as prescribed. He has also had a poor appetite. His May 2020 and he has lost 50 pounds since then. Patient is currently being treated for urinary tract infection. He does not check his blood sugars regularly. In the ER he is found to have sodium of 130, potassium 5.4, GFR 53 and creatinine 1.65 which appears to be near his baseline. He also has a random glucose of 716, bicarb of 31.4, BNP of 2492, and anion gap of 11, blood gas shows a pH of 7.39. Chest x-ray shows no acute chest disease. In the ER, he was given 10 units of regular insulin subcutaneously and his blood sugar dropped down to 455. He also received a 500 mL bolus of normal saline. He is being admitted for management of hyperglycemia. Medical History (Last Reviewed 01/01/21 @ 12:08 by Raquel Murray MD) Congestive heart failure Diabetes mellitus Pacemaker Surgical History: Surgical History (Last Reviewed 01/01/21 @ 12:08 by Raquel Murray MD) No pertinent past surgical history Family History: Family History (Last Reviewed 01/01/21 @ 12:08 by Raquel Murray MD) Other No pertinent family history Social History: (Last Reviewed 01/01/21 @ 12:08 by Raquel Murray MD) Social History: household members: family caregivers: other Service: Yes branch: [employer] status: retired Tobacco: Smoking Status: Never smoker Alcohol: alcohol intake: never Substance Use: substance use type: does not use Review Of Systems (GEN) - Review of Systems Generalized/Overall Review: Present: Fatigue, Weight loss. Absent: Chills, Fever Respiratory: Absent: Shortness of Breath Cardiac: Absent: Chest Pain Abdominal: Absent: Nausea, Vomiting, Abdominal Pain Misc: All systems neg except as marked Immunizations: IMMUNIZATION HX Immunizations Up to Date Yes Immunizations Comment covid series completed History of Influenza Vaccine Yes Hx Pneumococcal Vaccination Yes Allergies/Adverse Reactions: Allergies Allergy/AdvReac Type Severity Reaction Status Date / Time No Known Allergies Allergy Verified 01/01/21 16:00 Home Medications: HOME MEDICATIONS Finasteride [Proscar] 5 mg PO DAILY 04/18/14 [Last Taken 01/19/15 07:00] Atorvastatin Calcium 40 mg PO HS 11/13/16 [Last Taken Unknown] Brimonidine Tartrate [Brimonidine 0.2% Ophthalmic Solution] 1 drp RIGHTEYE BID 01/01/21 [Last Taken Unknown] Bupropion HCl [Bupropion Xl] 150 mg PO DAILY 01/01/21 [Last Taken Unknown] Carvedilol [Coreg] 25 mg PO BID 01/01/21 [Last Taken Unknown] FLUoxetine HCL [Prozac] 80 mg PO DAILY 01/01/21 [Last Taken Unknown] Gabapentin [Neurontin] 300 mg PO BID 01/01/21 [Last Taken Unknown] Insulin Aspart [Novolog] 14 units SC [facility] 01/01/21 [Last Taken Unknown] Insulin Glargine,Hum.rec.anlog [Lantus] 30 units SC HS 01/01/21 [Last Taken Unknown] Latanoprost/Pf [Latanoprost 0.005% Eye Drop] 1 drp OP HS 01/01/21 [Last Taken Unknown] Spironolactone [Aldactone] 25 mg PO DAILY 01/01/21 [Last Taken Unknown] Torsemide 80 mg PO DAILY 01/01/21 [Last Taken Unknown] traZODone HCL [Trazodone HCl] 200 mg PO HS 01/01/21 [Last Taken Unknown] Exam - Exam Vital Signs: Vital Signs - Last Taken Temp 36.0 C 01/01/21 11:35 Pulse 77 01/01/21 14:15 Resp 13 01/01/21 14:15 BP 127/79 01/01/21 14:15 Pulse Ox 92 L 01/01/21 14:15 Constitutional: Present: Alert, Cooperative, Well developed, No distress, Elderly, Thin and frail ENT Exam: Present: hearing grossly normal, moist mucous membranes Eye Exam: bilateral eye: normal inspection, PERRL, EOMI Neck: Present: non-tender, supple. Absent: lymphadenopathy (R), lymphadenopathy (L) Back Exam: Present: normal inspection, no CVA tenderness, no vertebral tenderness Respiratory: Present: lungs clear, no respiratory distress, no accessory muscle use, No wheezing. Absent: crackles, rhonchi, wheezing Cardiovascular/Chest: Present: normal peripheral pulses, regular rate, rhythm, no edema, no murmur Peripheral Pulses: dorsalis-pedis (R): 1+, dorsalis-pedis (L): 1+ Abdomen: Present: Normal bowel sounds, soft, nontender Extremity: Present: no pedal edema Skin Exam: Present: normal color, warm/dry Neurologic: Present: alert, normal mood/affect Appearance: Present: appropriate appearance, appropriate insight Eye contact: Present: cooperative Thoughts: Present: normal mood /affect Diagnostic Studies: Abnormal Lab Results 01/01/21 01/01/21 01/01/21 Range/Units 12:15 12:15 12:15 WBC 3.2 L (4.0-10.5) K/mm3 RBC 4.58 L (4.7-6.0) M/mm3 Hgb 13.2 L (13.5-18.0) gm/dL Hct 39.3 L (42.0-52.0) % Lymphocytes # 0.72 L (1.5-3.5) k/mm3 pCO2 49.1 H (35.0-48.0) mmHg pO2 47.5 H (23.3-35.1) mmHg Total CO2 30.4 H (22.0-26.0) mmol/L VBG O2 Saturation 82.4 L (94.0-98.0) % Sodium 130 L (132-142) mmol/L Potassium 5.4 H D (3.4-4.6) mmol/L Chloride 93 L (97-106) mmol/L BUN 55 H D (6-23) mg/dL Creatinine 1.65 H (0.4-1.4) mg/dL Est GFR (Non-Af Amer) 53 L (60-130) mL/min BUN/Creatinine Ratio 33.3 H (9.0-21.6) Random Glucose 716 H (70-110) mg/dL Magnesium 3.2 H (1.2-2.8) mg/dL B-Natriuretic Peptide 2492 H (5-350) pg/mL Urine Glucose (UA) (NEGATIVE) mg/dL Urine Blood (NEGATIVE) /ul Urine RBC (0-5) /hpf 01/01/21 Range/Units 13:12 WBC (4.0-10.5) K/mm3 RBC (4.7-6.0) M/mm3 Hgb (13.5-18.0) gm/dL Hct (42.0-52.0) % Lymphocytes # (1.5-3.5) k/mm3 pCO2 (35.0-48.0) mmHg pO2 (23.3-35.1) mmHg Total CO2 (22.0-26.0) mmol/L VBG O2 Saturation (94.0-98.0) % Sodium (132-142) mmol/L Potassium (3.4-4.6) mmol/L Chloride (97-106) mmol/L BUN (6-23) mg/dL Creatinine (0.4-1.4) mg/dL Est GFR (Non-Af Amer) (60-130) mL/min BUN/Creatinine Ratio (9.0-21.6) Random Glucose (70-110) mg/dL Magnesium (1.2-2.8) mg/dL B-Natriuretic Peptide (5-350) pg/mL Urine Glucose (UA) >=1000 H (NEGATIVE) mg/dL Urine Blood 5 H (NEGATIVE) /ul Urine RBC 5-10 H (0-5) /hpf Laboratory Results WBC 3.2 K/mm3 (4.0-10.5) L 01/01/21 12:15 RBC 4.58 M/mm3 (4.7-6.0) L 01/01/21 12:15 Hgb 13.2 gm/dL (13.5-18.0) L 01/01/21 12:15 Hct 39.3 % (42.0-52.0) L 01/01/21 12:15 MCV 85.8 fl (78-100) 01/01/21 12:15 MCH 28.8 pg (27-31) 01/01/21 12:15 MCHC 33.6 g/dl (32-36) 01/01/21 12:15 RDW 11.9 % (11.5-14.0) 01/01/21 12:15 Plt Count 176 K/mm3 (150-450) 01/01/21 12:15 MPV 10.2 fl (8-11.3) 01/01/21 12:15 Immature Gran % (Auto) 0.30 % (0.001-0.429) 01/01/21 12:15 Immature Gran # (Auto) 0.01 K/mm3 (0.000-0.0310) 01/01/21 12:15 Neutrophils % 68.5 % (42-75.0) 01/01/21 12:15 Lymphocytes % 22.3 % (20-51) 01/01/21 12:15 Monocytes % 6.5 % (0.0-9) 01/01/21 12:15 Eosinophils % 1.5 % (0.0-3.0) 01/01/21 12:15 Basophils % 0.9 % (0.0-1.0) 01/01/21 12:15 Nucleated RBC % 0.0 k/mm3 (0-1) 01/01/21 12:15 Neutrophils # 2.2 K/mm3 (1.3-6.0) 01/01/21 12:15 Lymphocytes # 0.72 k/mm3 (1.5-3.5) L 01/01/21 12:15 Monocytes # 0.2 k/mm3 (0.0-1.0) 01/01/21 12:15 Eosinophils # 0.1 k/mm3 (0.0-0.7) 01/01/21 12:15 Absolute Basophils 0.0 k/mm3 (0.0-0.1) 01/01/21 12:15 pCO2 49.1 mmHg (35.0-48.0) H 01/01/21 12:15 pO2 47.5 mmHg (23.3-35.1) H 01/01/21 12:15 HCO3 28.9 mmol/L (22.0-29.0) 01/01/21 12:15 Total CO2 30.4 mmol/L (22.0-26.0) H 01/01/21 12:15 Base Excess 3.0 mmol/L (-2.0-3.0) 01/01/21 12:15 ABG pH 7.39 (7.32-7.43) 01/01/21 12:15 VBG O2 Saturation 82.4 % (94.0-98.0) L 01/01/21 12:15 Sodium 130 mmol/L (132-142) L 01/01/21 12:15 Plasma Sodium 140 mmol/L (130-142) 01/01/21 12:15 Potassium 5.4 mmol/L (3.4-4.6) H D 01/01/21 12:15 Chloride 93 mmol/L (97-106) L 01/01/21 12:15 Carbon Dioxide 31.4 mmol/L (24-32.6) 01/01/21 12:15 Anion Gap 11.0 mmol/L (6.8-13.8) 01/01/21 12:15 BUN 55 mg/dL (6-23) H D 01/01/21 12:15 Creatinine 1.65 mg/dL (0.4-1.4) H 01/01/21 12:15 Est GFR (Non-Af Amer) 53 mL/min (60-130) L 01/01/21 12:15 BUN/Creatinine Ratio 33.3 (9.0-21.6) H 01/01/21 12:15 Random Glucose 716 mg/dL (70-110) H 01/01/21 12:15 Calcium 8.8 mg/dL (7.9-10.9) 01/01/21 12:15 Calcium Adj for Albumin 8.6 mg/dL (8.4-10.2) 01/01/21 12:15 Magnesium 3.2 mg/dL (1.2-2.8) H 01/01/21 12:15 Total Bilirubin 0.7 mg/dL (0.0-1.1) 01/01/21 12:15 AST 27 U/L (0-48) 01/01/21 12:15 ALT 52 U/L (19-67) 01/01/21 12:15 Alkaline Phosphatase 83 U/L (50-170) 01/01/21 12:15 B-Natriuretic Peptide 2492 pg/mL (5-350) H 01/01/21 12:15 Total Protein 7.3 gm/dL (6.2-8.2) 01/01/21 12:15 Albumin 3.8 gm/dl (3.4-5.0) 01/01/21 12:15 Urine Color Yellow 01/01/21 13:12 Urine Appearance Clear (CLEAR) 01/01/21 13:12 Urine pH 7.0 pH (5.0-7.0) 01/01/21 13:12 Ur Specific Duck <=1.005 SP.GR. (1.005-1.030) 01/01/21 13:12 Urine Protein Negative mg/dL (NEGATIVE) 01/01/21 13:12 Urine Glucose (UA) >=1000 mg/dL (NEGATIVE) H 01/01/21 13:12 Urine Ketones 15 mg/dL (NEGATIVE) 01/01/21 13:12 Urine Blood 5 /ul (NEGATIVE) H 01/01/21 13:12 Urine Nitrate Negative (NEGATIVE) 01/01/21 13:12 Urine Bilirubin Negative mg/dl (NEGATIVE) 01/01/21 13:12 Urine Urobilinogen Normal EU/dl (NORMAL) 01/01/21 13:12 Ur Leukocyte Esterase Negative /ul (NEGATIVE) 01/01/21 13:12 Urine RBC 5-10 /hpf (0-5) H 01/01/21 13:12 Urine WBC None seen /hpf (0-5) 01/01/21 13:12 Ur Epithelial Cells Trace /hpf (0-5) 01/01/21 13:12 Urine Bacteria None seen (NONE) 01/01/21 13:12 Urine Culture Comments No culture indicated 01/01/21 13:12 Serum Ketones Negative (NEGATIVE) 01/01/21 12:15 Assessment/Plan - Narrative Narrative: 68-year-old male with a past medical history of diabetes mellitus, BPH, hyperlipidemia, hypertension, congestive heart failure and pacemaker presents from home with complaints of elevated blood sugar. Home health. Patient states he has not been feeling well for the past 2 to 4 weeks and therefore has not been taking his medications as prescribed. He has also had a poor appetite. His May 2020 and he has lost 50 pounds since then. Patient is currently being treated for urinary tract infection. He does not check his blood sugars regularly. In the ER he is found to have sodium of 130, potassium 5.4, GFR 53 and creatinine 1.65 which appears to be near his baseline. He also has a random glucose of 716, bicarb of 31.4, BNP of 2492, and anion gap of 11, blood gas shows a pH of 7.39. Chest x-ray shows no acute chest disease. In the ER, he was given 10 units of regular insulin subcutaneously and his blood sugar dropped down to 455. He also received a 500 mL bolus of normal saline. He is being admitted for management of hyperglycemia. Plan #1 restart Lantus 20 units nightly, start sliding scale for Premeal insulin administration. Monitor blood sugar 4 times a day. #2 repeat BMP in the morning #3 resume home medications for comorbidities #4 diabetic diet - Assessment/Plan (1) Hyperglycemia due to diabetes mellitus Problem: Acute (2) CKD (chronic kidney disease) stage 3, GFR 30-59 ml/min Problem: Acute (3) HTN (hypertension) Problem: Chronic Qualifiers: (4) E. coli urinary tract infection Problem: Acute (5) Hyperlipidemia Problem: Chronic Qualifiers: (6) BPH (benign prostatic hyperplasia) Problem: Chronic
[2021-01-01] MEDS ORDERED: INSULIN LISPRO 100 UNITS/ML VIAL SC ONE (14:44)
[2021-01-01] MEDS ORDERED: INSULIN LISPRO 100 UNITS/ML VIAL SC SCH (17:39)
[2021-01-01] MEDS ORDERED: GABAPENTIN 300 MG CAPSULE PO SCH (21:00)
[2021-01-01] MEDS ORDERED: INSULIN GLARGINE,HUM.REC.ANLOG 100 UNITS/ML VIAL SC SCH (21:00)
[2021-01-01] MEDS ORDERED: traZODone HCL 50 MG TABLET PO SCH (21:00)
[2021-01-01] MEDS ORDERED: LATANOPROST 25 DROP BTL OP SCH (21:00)
[2021-01-01] MEDS ORDERED: BRIMONIDINE TARTRATE 50 DROP BTL RIGHTEYE SCH (21:00)
[2021-01-01] MEDS ORDERED: ROSUVASTATIN CALCIUM 20 MG TABLET PO SCH (21:00)
[2021-01-01 21:27] VITALS: BP 123/77
[2021-01-02] MEDS ORDERED: buPROPion HCL 150 MG TAB.SR.24H PO SCH (09:00)
[2021-01-02] MEDS ORDERED: FLUoxetine HCL 20 MG CAPSULE PO SCH (09:00)
[2021-01-02] MEDS ORDERED: SPIRONOLACTONE 25 MG TABLET PO SCH (09:00)
[2021-01-02] MEDS ORDERED: TORSEMIDE 20 MG TABLET PO SCH (09:00)
[2021-01-02] MEDS ORDERED: FINASTERIDE 5 MG TABLET PO SCH (09:00)
== END 2021-01-01 23:59 | disposition still patient (30) ==
LOC: ER 11:35 → MS 11:35
PROVIDERS: ADMIT Internal Medicine; ATTEND Internal Medicine